=== PATIENT | female | born 1965 | race Caucasian/White ===

== ENCOUNTER 2020-07-01 13:06 | Emergency (ER) | payer SELFPAY ==
[2020-07-01] MEDS ORDERED: CYCLOBENZAPRINE HCL 10 MG TABLET PO ONE ×2 (13:24→17:15)
[2020-07-01] MEDS ORDERED: KETOROLAC TROMETHAMINE 60 MG/2 ML SDV IM ONE ×2 (13:24→17:15)
--- NOTE | 2020-07-01 13:25 | ER Document Report ---
ED Medical Screen (RME) - General Chief Complaint: Back Pain Stated Complaint: BACK PAIN Time Seen by Provider: 07/01/20 13:16 Mode of Arrival: Wheelchair Information source: Patient Notes: HPI; 54-year-old female presents to the emergency room complaining of worsening upper back pain. Patient states she was seen here in the beginning of May for low back pain had x-rays that showed degenerative changes. Was discharged home on Valium and hydrocodone. She states that she then followed up with orthopedics about 3 weeks later. States she was given 2 shots in the office discharged home on diclofenac told it was sciatica and was given back exercises to do. Patient states she has not been able to do the back exercises secondary to the pain she states the pain she is having now is higher along her bra line and radiates into her right flank area. She denies any nausea, vomiting, no urinary symptoms. Took Rodríguez's pills and Tylenol earlier today without relief. Denies any loss of control of her bowels or bladder. Denies radiation of pain into her legs. States she has a follow-up appointment on with orthopedist. States the pain was so severe today that she decided to come to the emergency room. PE: Alert and oriented x3. Moderate distress noted. Lungs: Clear to auscultation without rales, rhonchi, wheezes. Heart: Tachycardic without murmurs, rubs, gallops. Positive for right sided CVA tenderness. There is no reproducible pain on palpation to the thoracic or lumbar region. There is some lower lumbar muscle spasms palpated. I have greeted and performed a rapid initial assessment of this patient. A comprehensive ED assessment and evaluation of the patient, analysis of test results and completion of the medical decision making process will be conducted by additional ED providers. I have specifically instructed the patient or family members with the patient to immediately return to any nursing staff should anything change in the patient's condition or with their chief complaint. TRAVEL OUTSIDE OF THE [place] IN LAST 30 DAYS: No - Related Data Allergies/Adverse Reactions: No Known Allergies Allergy (Unverified 05/14/20 17:35) Past Medical History Past Surgical History: Reports: Hx Section - 1990, Hx Tubal Ligation - 1997 Physical Exam - Vital signs Vitals: Temp Pulse Resp BP Pulse Ox 98.2 F 105 H 20 156/82 H 99 09/21/20 13:12 07/01/20 13:12 07/01/20 13:12 07/01/20 13:12 07/01/20 13:12 Course - Vital Signs Vital signs: Temp Pulse Resp BP Pulse Ox 98.2 F 105 H 20 156/82 H 99 07/01/20 13:12 07/01/20 13:12 07/01/20 13:12 07/01/20 13:12 07/01/20 13:12
[2020-07-01 13:59] LABS: ABSOLUTE EOSINOPHILS # (AUTO) 0.1 10^3/uL (0.0-0.6); ABSOLUTE LYMPHOCYTES (AUTO) 1.1 10^3/uL (0.5-4.7); ABSOLUTE MONOCYTES (AUTO) 0.6 10^3/uL (0.1-1.4); ABSOLUTE NEUT (AUTO) 6.9 10^3/uL (1.7-8.2); BASOPHILS % (AUTO) 0.3 % (0-2); EOSINOPHILS % (AUTO) 1.1 % (0-6); HEMATOCRIT 28.8 % (36.0-47.0); HEMOGLOBIN 9.9 g/dL (12.0-15.5); MEAN CORPUSCULAR HEMOGLOBIN 27.3 pg (27.0-33.4); MEAN CORPUSCULAR HGB CONC 34.4 g/dL (32.0-36.0); MEAN CORPUSCULAR VOLUME 79 fl (80-97); MONOCYTES % (AUTO) 6.8 % (3-13); PLATELET COUNT 438 10^3/uL (150-450); RED BLOOD COUNT 3.63 10^6/uL (3.72-5.28); RED CELL DISTRIBUTION WIDTH 16.8 % (11.5-14.0); SEGMENTED NEUTROPHILS % (AUTO) 78.8 % (42-78); TOTAL CELLS COUNTED % (AUTO) 100 %; WHITE BLOOD COUNT 8.8 10^3/uL (4.0-10.5)
--- NOTE | 2020-07-01 14:11 | RADIOLOGY REPORT (SQ) ---
EXAM DESCRIPTION: CT ABD/PELVIS NO ORAL OR IV IMAGES COMPLETED DATE/TIME: 07/01/2020 1:58 pm REASON FOR STUDY: flank pain COMPARISON: None. TECHNIQUE: CT scan of the abdomen and pelvis performed without intravenous or oral contrast. Images reviewed with lung, soft tissue, and bone windows. Reconstructed coronal and sagittal MPR images revi ewed. All images stored on PACS. All CT scanners at this facility use dose modulation, iterative reconstruction, and/or weight based d osing when appropriate to reduce radiation dose to as low as reasonably achievable (ALARA). [facility]: Dose Right [facility]: CareDose [facility]: Dose Right [facility]: Teradose 4D [facility]: [employer] RADIATION DOSE: CT Rad equipment meets quality standard of care and radiation dose reduction techniq ues were employed. CTDIvol: 5.1 mGy. DLP: 257 mGy-cm.mGy. LIMITATIONS: None. FINDINGS: LOWER CHEST: There are small bilateral pleural effusions and basilar airspace disease atel ectasis or less likely pneumonia. NON-CONTRASTED LIVER, SPLEEN, ADRENALS: Evaluation limited by lack of IV contrast. No identified sign ificant masses. PANCREAS: No masses. No peripancreatic inflammatory changes. GALLBLADDER: No identified stones by CT criteria. No inflammatory changes to suggest cholecystitis. RIGHT KIDNEY AND URETER: No suspicious masses. Assessment limited by lack of IV contrast. No signif icant calcifications. No hydronephrosis or hydroureter. LEFT KIDNEY AND URETER: No suspicious masses. Assessment limited by lack of IV contrast. No signifi cant calcifications. No hydronephrosis or hydroureter. AORTA AND RETROPERITONEUM: No aneurysm. No retroperitoneal masses or adenopathy. BOWEL AND PERITONEAL CAVITY: No obvious masses or inflammatory changes. No free fluid. APPENDIX: Normal. PELVIS, BLADDER, AND ABDOMINAL WALL:Calcified uterine fibroid is noted. No free fluid. No adnexal m asses. BONES: No significant findings. OTHER: No other significant finding. IMPRESSION: Small bilateral pleural effusions and basilar atelectasis or pneumonia. No acute findin gs in the abdomen or pelvis. COMMENT: Quality ID # 436: Final reports with documentation of one or more dose reduction techniques (e.g., Automated exposure control, adjustment of the mA and/or kV according to patient size, use of iterative reconstruction technique) TECHNICAL DOCUMENTATION: JOB ID: [id number] 2010 [employer]- All Rights Reserved Reading location - IP/workstation name: [email or web address]
[2020-07-01 14:23] LABS: ALBUMIN 3.8 g/dL (3.5-5.0); ALKALINE PHOSPHATASE 110 U/L (38-126); ANION GAP 10 (5-19); ASPARTATE AMINO TRANSFERASE 22 U/L (14-36); BILIRUBIN,DIRECT 0.3 mg/dL (0.0-0.4); BILIRUBIN,TOTAL 0.5 mg/dL (0.2-1.3); BLOOD UREA NITROGEN 11 mg/dL (7-20); CALCIUM 9.2 mg/dL (8.4-10.2); CARBON DIOXIDE 25 mmol/L (22-30); CHLORIDE 101 mmol/L (98-107); GLUCOSE 114 mg/dL (75-110); TOTAL PROTEIN 7.6 g/dL (6.3-8.2)
[2020-07-01] MEDS ORDERED: HYDROMORPHONE HCL INJ/PF 2 MG/ML AMPULE IV ONE (17:42)
[2020-07-01] MEDS ORDERED: ONDANSETRON HCL INJ/PF 4 MG/2 ML SDV IV ONE (17:43)
--- NOTE | 2020-07-01 18:06 | RADIOLOGY REPORT (SQ) ---
EXAM DESCRIPTION: CHEST SINGLE VIEW IMAGES COMPLETED DATE/TIME: 07/01/2020 5:56 pm REASON FOR STUDY: hthn COMPARISON: 2007 EXAM PARAMETERS: NUMBER OF VIEWS: One view. TECHNIQUE: Single frontal radiographic view of the chest acquired. RADIATION DOSE: NA LIMITATIONS: None. FINDINGS: LUNGS AND PLEURA: Small right pleural effusion. No infiltrate or mass. MEDIASTINUM AND HILAR STRUCTURES: No masses. Contour normal. HEART AND VASCULAR STRUCTURES: Heart normal in size. Normal vasculature. BONES: No acute findings. HARDWARE: None in the chest. OTHER: No other significant finding. IMPRESSION: Minimal right pleural effusion. TECHNICAL DOCUMENTATION: JOB ID: [id number] 2010 [email or web address]- All Rights Reserved Reading location - IP/workstation name: [email or web address]
--- NOTE | 2020-07-01 18:43 | RADIOLOGY REPORT (SQ) ---
EXAM DESCRIPTION: U/S ABDOMEN LIMITED W/O DOP IMAGES COMPLETED DATE/TIME: 07/01/2020 6:29 pm REASON FOR STUDY: RUQ pain COMPARISON: CT abdomen and pelvis 07/01/2020 TECHNIQUE: Dynamic and static grayscale images acquired of the abdomen and recorded on PACS. Teresa jane selected color Doppler and spectral images recorded. LIMITATIONS: None. FINDINGS: PANCREAS: No masses. Visualized pancreatic duct normal caliber. LIVER: No masses. Echotexture normal. LIVER VASCULATURE: Normal directional flow of the main portal vein and hepatic veins. GALLBLADDER: No stones. Normal wall thickness. No pericholecystic fluid. ULTRASOUND-DETECTED DOLAN'S SIGN: Negative. INTRAHEPATIC DUCTS AND COMMON DUCT: CBD and intrahepatic ducts normal caliber. No filling defects. INFERIOR VENA CAVA: Normal flow. AORTA: No aneurysm. RIGHT KIDNEY: Normal size. Normal echogenicity. No solid or suspicious masses. No hydronephrosis. No calcifications. PERITONEAL AND RIGHT PLEURAL SPACE: Right pleural effusion. OTHER: No other significant findings. IMPRESSION: Re- demonstration of a right-sided pleural effusion. Normal sonographic appearance of t he right upper quadrant. TECHNICAL DOCUMENTATION: JOB ID: [id number] 2010 [employer]- All Rights Reserved Reading location - IP/workstation name: [email or web address]
[2020-07-01 20:52] LABS: APPEARANCE,URINE CLEAR; BILIRUBIN,URINE NEGATIVE (NEGATIVE); COLOR,URINE YELLOW; GLUCOSE, URINE NEGATIVE (NEGATIVE); KETONES,URINE 20 mg/dL (NEGATIVE); LEUKOCYTE ESTERASE,URINE NEGATIVE (NEGATIVE); NITRITE,URINE NEGATIVE (NEGATIVE); PROTEIN,URINE NEGATIVE (NEGATIVE); URINE SPECIFIC GRAVITY 1.055; UROBILINOGEN,URINE NEGATIVE mg/dL (<2.0)
--- NOTE | 2020-07-01 20:53 | RADIOLOGY REPORT (SQ) ---
EXAM DESCRIPTION: CT ABDOMEN PELVIS ANGIOGRAPHY WITHOUT THEN WITH IV CONTRAST, CT CHEST ANGIOGRAPHY WITHOUT THEN WITH IV CONTRAST COMPLETED DATE/TME: 07/01/2020 18:47 CLINICAL HISTORY: 54 years, Female, pain/ Rt pleural effusion COMPARISON: Prior study from earlier the same day TECHNIQUE: Contrast enhanced CTA of the chest, abdomen, and pelvis was performed after the administration of 100 mL of Omnipaque 350 intravenous contrast. MIPS were created. Images stored on PACS. All CT scanners at this facility use dose modulation, iterative reconstruction, and/or weight based dosing when appropriate to reduce radiation dose to as low as reasonably achievable (ALARA). [facility]: Dose Right [facility]: CareDose [facility]: Dose Right [facility]: Teradose 4D [facility]: [employer] LIMITATIONS: None. FINDINGS: CTA chest: Central airways are patent. Lung windows show small bilateral pleural effusions with associated bibasilar atelectasis. Lungs are otherwise clear. Mediastinal windows show no significant hilar or mediastinal lymph node enlargement. However, there is near-complete collapse of the T7-T8 intervertebral disc space with associated erosive change about the inferior endplate of T7 and superior endplate of T8, best visualized on image 46 of series 602. Associated paravertebral soft tissue inflammation is evident, best visualized on image 57 of series 3. Likewise, there is some degree of retropulsion of fragments into the thoracic canal with suspected underlying central canal stenosis at this site. Heart shows no suspicious abnormality. The ascending thoracic aorta is normal in caliber. There is no definitive evidence of thoracic aortic dissection. Likewise, the visualized pulmonary arterial vasculature appears to opacify with contrast normally to the lobar level. Bone windows through the chest show no additional destructive osseous lesions. CTA abdomen/pelvis: Liver, spleen, pancreas, gallbladder, and both adrenal glands appear normal. Kidneys enhance symmetrically. No hydronephrosis or hydroureter. The urinary bladder is well distended and shows no suspicious finding. Delayed images reveal no suspicious abnormality. Uterus contains a few calcified fibroids. In addition, there is hypodensity about the endometrial cavity which could indicate fluid within the endometrial cavity or endometrial thickening. Ovaries show no suspicious anomaly. Scattered colonic diverticula are noted. Small and large bowel are otherwise normal in caliber. No evidence of bowel obstruction. Appendix is normal. Tiny fat-containing umbilical hernia is evident. Visualized is focal moderate narrowing involving the proximal celiac artery, best visualized on image 50 of series 602. This appear mesenteric artery opacifies with contrast normally. Only mild calcifications are evident about the infrarenal abdominal aorta. No lymphadenopathy is appreciated. There are no drainable fluid collections. Bone windows through the abdomen/pelvis reveal irregularity involving the inferior endplate of L5/superior plate of S1 with some degree of paravertebral soft tissue thickening. This is best visualized on image 46 of series 602. No additional destructive osseous lesions. IMPRESSION: CTA chest: No evidence of thoracic aortic dissection or other vascular anomaly within the chest. Collapse of the T7-T8 intervertebral disc space with associated erosive change about the inferior endplate of T7/superior endplate of T8 as well as paravertebral soft tissue inflammation, suggesting phlegmon. Overall, these finds are most compatible with osteomyelitis/discitis at T7-T8. Likewise, there is some degree of retropulsion of ossific fragments into the thoracic canal at this level which could contribute to some degree of central canal stenosis. Consider correlation with contrast-enhanced MR. Small bilateral pleural effusions with bibasilar atelectasis. CTA abdomen/pelvis: No acute vascular abnormality within the abdomen or pelvis. Additional irregularity involving the inferior endplate of L5/superior endplate of S1 could indicate degenerative endplate change though an additional segment of osteomyelitis/discitis at this level could have this appearance. Correlation with contrast-enhanced MR would be of benefit. Fibroid uterus. Short segment moderate narrowing involving the proximal celiac artery just beyond its origin. TECHNICAL DOCUMENTATION: Quality ID # 436: Final reports with documentation of one or more dose reduction techniques (e.g., Automated exposure control, adjustment of the mA and/or kV according to patient size, use of iterative reconstruction technique) copyright 2011 [employer]- All Rights Reserved
[2020-07-01] MEDS ORDERED: VANCOMYCIN HCL INJ 1000 MG VIAL IV ONE (21:40)
[2020-07-01] MEDS ORDERED: MEROPENEM 1 GM VIAL IV ONE (21:49)
--- NOTE | 2020-07-01 23:49 | ER Document Report ---
Entered by GUALBERTO WAYNE SCRIBE 07/01/20 [id number] Acting as scribe for:CAMPOS LEE DO ED General - General Chief Complaint: Low Back Pain Stated Complaint: BACK PAIN Time Seen by Provider: 07/01/20 13:16 Mode of Arrival: Wheelchair Information source: Patient Notes: This 54 year old female patient presents to the emergency department today with complaints of back pain. Patient states she was seen in the ED around x7 weeks ago when her lower back pain began. Patient states she was told there were degenerative changes after having an x-ray and she followed-up with Orthopedics who told her it was sciatica. Patient states she was given a few shots and exercises but is now unable to do them due to her back pain increasing. Patient states she has also seen a Chiropractor. Patient states she takes Tylenol and Motrin without relief and took a Rodríguez's pill this morning. Patient states her lower back pain has moved up her back and radiates to her right ribs. Denies any fall, injury, fever, weight loss, cough, N/V, or urinary symptoms. TRAVEL OUTSIDE OF THE [place] IN LAST 30 DAYS: No - Related Data Allergies/Adverse Reactions: No Known Allergies Allergy (Unverified 05/14/20 17:35) Past Medical History - General Information source: Patient - Social History Smoking Status: Never Smoker Cigarette use (# per day): No Family History: Reviewed & Not Pertinent Patient has homicidal ideation: No Past Surgical History: Reports: Hx Section - 1990, Hx Tubal Ligation - 1997 Review of Systems - Review of Systems Constitutional: See HPI. denies: Fever, Weight loss EENT: No symptoms reported Cardiovascular: No symptoms reported Respiratory: See HPI. denies: Cough Gastrointestinal: See HPI. denies: Nausea, Vomiting Genitourinary: See HPI Female Genitourinary: No symptoms reported Musculoskeletal: See HPI, Back pain Skin: No symptoms reported Hematologic/Lymphatic: No symptoms reported Neurological/Psychological: No symptoms reported -: Yes All other systems reviewed and negative Physical Exam - Vital signs Vitals: Temp Pulse Resp BP Pulse Ox 98.2 F 105 H 20 156/82 H 99 07/01/20 13:12 07/01/20 13:12 07/01/20 13:12 07/01/20 13:12 07/01/20 13:12 - General General appearance: Appears well, Alert - HEENT Head: Normocephalic, Atraumatic Eyes: Normal Pupils: PERRL - Respiratory Respiratory status: No respiratory distress Breath sounds: Normal Notes: Tenderness with palpation to the right costal margin of the chest. - Cardiovascular Rhythm: Regular Heart sounds: Normal auscultation Murmur: No - Abdominal Inspection: Normal Distension: No distension Bowel sounds: Normal Tenderness: Tender - RUQ - Back Notes: Tenderness with palpation to the right paraspinal region. No midline tenderness and no step-off. - Extremities General upper extremity: Normal inspection. No: Edema General lower extremity: Normal inspection. No: Edema - Neurological Neuro grossly intact: Yes Cognition: Normal Orientation: AAOx4 [place] Coma Scale Eye Opening: Spontaneous Jayesh Coma Scale Verbal: Oriented [place] Coma Scale Motor: Obeys Commands [place] Coma Scale Total: 15 Speech: Normal Motor strength normal: LUE, RUE - Psychological Associated symptoms: Normal affect, Normal mood - Skin Skin Temperature: Warm Skin Moisture: Dry Skin Color: Normal Course - Re-evaluation Re-evalutation: 07/01/20 22:47 MDM 54 year old female arrives with back pain - thoracic and lumbar - that has become disabling. Sharp pain in right back and workup here is concerning for discitis and osteomyelitis. She last stood and walked this am but can not walk at this time. She complains of parathesias in her bilateral legs and weakness of both legs. The left leg/ thigh can be flexed but there is minimal movement of the right leg at this time. I have discussed with NS at [facility] (Dr. Reyes) an he is happy to be a library consultant. He reccomends primary management with IM and ID with likely a biopsy by IR. The pt has had cultures ordered and antibiotics. The pain is improved. I have reviewed the studies and treatment with the pt and she has expressed understanding. 07/01/20 22:[address] Maurice - hospitalist at [facility] - and he has graciously accepted the pt in transfer. We are working on the logistics of transfer. After discussing the transfer with the pt she asked about her legs and the weakness that she has just developed in both legs. She is unable to flex her hips at this point and has only slight movement of the left leg and less of the right foot. Sensation to light touch is intact. She has antibiotics infusing. I have called the transfer center back to update Dr. Reyes regarding the neurologic exam. He has relayed thru the transfer center that he will be available once the pt arrives at [facility]. 07/02/20 02:39 I have rechecked with the transfer center and they do not have the Intermediate bed requested by Dr. Maurice at this time. They expect to soon or in the morning. - Vital Signs Vital signs: Temp Pulse Resp BP Pulse Ox 98.7 F 98 18 131/78 H 100 07/01/20 23:05 07/01/20 23:05 07/01/20 23:05 07/01/20 23:05 07/01/20 23:05 - Laboratory Result Diagrams: 07/01/20 13:27 07/01/20 13:27 Laboratory results interpreted by me: 07/01/20 07/01/20 07/01/20 13:27 13:27 13:27 RBC 3.63 L Hgb 9.9 L Hct 28.8 L MCV 79 L RDW 16.8 H Seg Neutrophils % 78.8 H Sodium 136.2 L Glucose 114 H C-Reactive Protein 82.1 H Urine Ketones 07/01/20 20:24 RBC Hgb Hct MCV RDW Seg Neutrophils % Sodium Glucose C-Reactive Protein Urine Ketones 20 H - Diagnostic Test Radiology reviewed: Reports reviewed Critical Care Note - Critical Care Note Total time excluding time spent on procedures (mins): 45 Discharge - Discharge Clinical Impression: Acute osteomyelitis of thoracic spine, Discitis of thoracic region Spinal stenosis Qualifiers: Spinal region: unspecified Qualified Code(s): M48.00 - Spinal stenosis, site unspecified Condition: Serious Disposition: [facility] I personally performed the services described in the documentation, reviewed and edited the documentation which was dictated to the scribe in my presence, and it accurately records my words and actions.
[2020-07-02] MEDS ORDERED: HYDROMORPHONE HCL INJ/PF 2 MG/ML AMPULE IV ONE ×4 (02:37→18:15)
[2020-07-02] MEDS ORDERED: ONDANSETRON HCL INJ/PF 4 MG/2 ML SDV IV ONE ×4 (02:37→18:15)
[2020-07-02] MEDS ORDERED: MEROPENEM 1 GM VIAL IV SCH ×2 (13:10→22:00)
[2020-07-02] MEDS ORDERED: VANCOMYCIN HCL INJ 1000 MG VIAL IV SCH (13:15)
[2020-07-02] MEDS ORDERED: NORMAL SALINE 500 ML IV ONE (18:11)
[2020-07-02] MEDS ORDERED: NORMAL SALINE 1000 ML 1,000 ML IV ONE (18:11)
[2020-07-02 20:15] VITALS: BP 135/86
== END 2020-07-02 20:25 | disposition short-term general hospital (02) ==
LOC: ER 13:06
DX: M46.44 Discitis, unspecified, thoracic region (principal); M46.24 Osteomyelitis of vertebra, thoracic region; M48.00 Spinal stenosis, site unspecified; R10.9 Unspecified abdominal pain
CPT/HCPCS: 96376; 99291; 96361; 96375 ×2; 96365; 96366 ×2; 96367; 36415; 87040; 83605; 85025; 86140; 87077; 80053; 81001; 71045; 76705; 71275; 74174; 74176; J1885; J1170 ×2; J2405 ×2; J7030; J7040; J3370 ×2; J2185 ×2; 87186